=== PATIENT | female | born 1985 | race Caucasian/White ===

== ENCOUNTER 2025-04-02 13:48 | Emergency (ER) | payer BC, OTHER ==
[~2025-04-02] VITALS: Ht 167.6 cm; Wt 90.7 kg
[2025-04-02 14:50] VITALS: RESP 18; TEMP 98.4
[2025-04-02] MEDS ORDERED: HYDRALAZINE HCL 20 MG/ML VIAL IV STA (15:07)
[2025-04-02] MEDS ORDERED: HYDRALAZINE HCL 20 MG/ML VIAL IV PRN (15:15)
[2025-04-02 15:29] LABS: LEUKOCYTE ESTERASE ,URINE SMALL (NEGATIVE); PROTEIN,URINE DIPSTICK 1+ (NEGATIVE); URINE UROBILINOGEN 0.2 mg/dL (0.2 - 1)
[2025-04-02 15:30] LABS: PREGNANCY TEST, URINE NEGATIVE (NEGATIVE)
[2025-04-02 15:37] LABS: EPITHELIAL CELLS,URINE FEW /LPF; WBC,URINE (MAN) >50 /HPF (0-5)
[2025-04-02 16:22] VITALS: PULSE 109; O2SAT 100
[2025-04-02] MEDS ORDERED: CEFTRIAXONE 1 GM VIAL ONE (16:22)
[2025-04-02] MEDS ORDERED: LIDOCAINE HCL 10 MG/ML VIAL INJ ONE (16:23)
[2025-04-02] MEDS: CEFTRIAXONE 1 GM VIAL IM ONE (16:39)
[2025-04-02] MEDS ORDERED: DOXYCYCLINE HY100 MG PO (16:47)
[2025-04-02] MEDS ORDERED: KETOROLAC TROME10 MG PO (16:47)
[2025-04-02] MEDS ORDERED: CEFDINIR300 MG PO (16:47)
[2025-04-02] MEDS ORDERED: PYRIDIUM200 MG PO (16:47)
[2025-04-02] MEDS: KETOROLAC TROMETHAMINE 60 MG/2 ML VIAL IM ONE (16:53)
[2025-04-02 17:29] VITALS: BP 116/68; PULSE 100; RESP 18
== END 2025-04-02 17:31 | disposition home or self-care (01) ==
LOC: ER 14:39
DX: R30.0 Dysuria (principal); N39.0 Urinary tract infection, site not specified; E11.9 Type 2 diabetes mellitus without complications; E78.5 Hyperlipidemia, unspecified
CPT/HCPCS: 81001; 81025; 87086; 99282; J0696; J1885